=== PATIENT | male | born 1930 | race Caucasian/White ===

== ENCOUNTER → 2016-10-12 | Outpatient (REF) | payer MEDICARE | LOC: LAB 11:01 | PROVIDERS: ATTEND Family Medicine | DX: E11.9 Type 2 diabetes mellitus without complications (principal) | CPT/HCPCS: 83036 ==

== ENCOUNTER → 2016-10-30 | Outpatient (CLI) | payer MEDICARE | LOC: EMS 01:57 | DX: Z53.20 Procedure and treatment not carried out because of patient's decision for unspecified reasons (principal) ==

== ENCOUNTER → 2016-11-03 | Outpatient (CLI) | payer MEDICARE ==
[~2016-11-03] MED LIST: AC500T PO; BUPR100T15 PO; BUPR100T8 PO; DARI15TA PO; DUTA0.5C PO; METO-270 PO; MV-M1TAB38 PO; OMEG1CAP58 PO; OXYB5TAB9 PO; SERT50TA9 PO; SIMV40TA2 PO; SOLI10TA2 PO; TRAZ-28 PO; VITA1TAB17 PO; WALKER; [UNRECOGNIZED DRUG - CODE] PO; [UNRECOGNIZED DRUG - CODE] PO
== END ==
LOC: EMS 01:06
DX: Z53.20 Procedure and treatment not carried out because of patient's decision for unspecified reasons (principal)